=== PATIENT | female | born 1995 | race American Indian/Alaskan Native ===

== ENCOUNTER 2018-09-13 19:18 | Emergency (ER) | payer MEDICAID ==
[2018-09-13 19:48] VITALS: BP 131/71
--- NOTE | 2018-09-13 19:49 | Event Note ---
ED Screening Note Date of service: 09/13/18 Time: 19:46 ED Screening Note: This is a 23 y.o. F. that presents to the ER with chest pain and vaginal discharge. Patient reports vaginal discharge for 1 week. States chest pain is intermittent and sharp in intensity. Current smoker Denies cough, fever LMP 07/27/2018 This initial assessment/diagnostic orders/clinical plan/treatment(s) is/are subject to change based on patients health status, clinical progression and re- assessment by fellow clinical providers in the ED. Further treatment and workup at subsequent clinical providers discretion. Patient/guardian urged not to elope from the ED as their condition may be serious if not clinically assessed and managed. Initial orders include: labs, ekg, and cxr
[2018-09-13 20:45] LABS: HCG Qualitative,Urine Negative (Negative)
[2018-09-13 20:49] LABS: Bacteria,Urine 1+ /HPF (Negative); Bilirubin,Urine NEG (Negative); Blood,Urine NEG (Negative); Color,Urine Yellow (Yellow); Mucus,Urine FEW /HPF; Protein,Urine <15 mg/dL mg/dL (Negative); Urobilinogen,Urine < 2.0 mg/dL (<2.0)
--- NOTE | 2018-09-13 22:00 | XRay Report ---
CHEST 2 VIEWS INDICATION / CLINICAL INFORMATION: Chest pain. COMPARISON: None available. FINDINGS: SUPPORT DEVICES: None. HEART / MEDIASTINUM: No significant abnormality. LUNGS / PLEURA: No significant pulmonary or pleural abnormality. No pneumothorax. ADDITIONAL FINDINGS: No significant additional findings. IMPRESSION: 1. No acute findings. Signer Name: Favian Jackson MD Signed: 09/13/2018 9:55 PM Workstation Name: [id number]
[2018-09-13] MEDS ORDERED: IBUPROFEN PO ONE (23:00)
--- NOTE | 2018-09-13 23:36 | Emergency Department Report ---
ED General Adult HPI - General Chief complaint: Chest Pain Stated complaint: CHEST PAIN/ANXIETY/VAGINAL ITCH Time Seen by Provider: 09/13/18 19:46 Source: patient Mode of arrival: Ambulatory Limitations: No Limitations - History of Present Illness Initial comments: This is a 23 y.o. F. that presents to the ER with chest pain and vaginal discharge. Patient reports vaginal discharge for 1 week white non malodorous, there is no fever or chills no n/v no back pain no hematuria Pt now states that symptoms are related to anxiety and finances no cp no sob no n/v no dizziness no lightheadedness no substance no SI or HI , LMP 07/27/2018 Onset/Timin -: week(s) Severity scale (0 -10): 3 Consistency: intermittent Improves with: none Worsens with: none Associated Symptoms: chest pain. denies: cough, diaphoresis, fever/chills, headaches, loss of appetite, malaise, nausea/vomiting, seizure, shortness of breath, weakness Treatments Prior to Arrival: none - Related Data Previous Rx's Medication Instructions Recorded Last Taken Type Ciprofloxacin HCl [Ciprofloxacin 500 mg PO Q12HR #20 tab 01/20/15 Unknown Rx TAB] Phenazopyridine [Pyridium] 100 mg PO TID #6 tab 01/20/15 Unknown Rx DOXYCYCLINE Hyclate [Vibramycin 100 mg PO BID 10 Days #20 capsule 06/10/18 Unknown Rx CAP] Ibuprofen [Motrin 800 MG tab] 800 mg PO Q8HR PRN #30 tablet 09/13/18 Unknown Rx Nitrofurantoin [place]/M-Cryst 100 mg PO BID 7 Days #14 capsule 09/13/18 Unknown Rx [Macrobid CAP] metroNIDAZOLE [Flagyl] 500 mg PO BID 10 Days #20 tab 09/13/18 Unknown Rx Allergies Allergy/AdvReac Type Severity Reaction Status Date / Time No Known Allergies Allergy Verified 09/13/18 19:22 ED Review of Systems ROS: Stated complaint: CHEST PAIN/ANXIETY/VAGINAL ITCH Other details as noted in HPI Constitutional: denies: chills, fever Eyes: denies: eye pain, eye discharge, vision change ENT: denies: ear pain, throat pain Respiratory: denies: cough, shortness of breath, wheezing Cardiovascular: chest pain (right sided chest wall pain with deep inspiration). denies: palpitations Endocrine: no symptoms reported Gastrointestinal: denies: abdominal pain, nausea, diarrhea Genitourinary: urgency, dysuria, frequency, discharge. denies: hematuria, dyspareunia Musculoskeletal: denies: back pain, joint swelling, arthralgia Skin: denies: rash, lesions Neurological: denies: headache, weakness, paresthesias Psychiatric: denies: anxiety, depression Hematological/Lymphatic: denies: easy bleeding, easy bruising ED Past Medical Hx - Past Medical History Previous Medical History?: Yes Hx Psychiatric Treatment: (bipolar, anxiety) - Surgical History Past Surgical History?: Yes Additional Surgical History: skin graft, arm surgery - Social History Smoking Status: Current Every Day Smoker - Medications Home Medications: Home Medications Medication Instructions Recorded Confirmed Last Taken Type Ciprofloxacin HCl [Ciprofloxacin 500 mg PO Q12HR #20 tab 01/20/15 Unknown Rx TAB] Phenazopyridine [Pyridium] 100 mg PO TID #6 tab 01/20/15 Unknown Rx DOXYCYCLINE Hyclate [Vibramycin 100 mg PO BID 10 Days #20 capsule 06/10/18 Unknown Rx CAP] Ibuprofen [Motrin 800 MG tab] 800 mg PO Q8HR PRN #30 tablet 09/13/18 Unknown Rx Nitrofurantoin [place]/M-Cryst 100 mg PO BID 7 Days #14 capsule 09/13/18 Unknown Rx [Macrobid CAP] metroNIDAZOLE [Flagyl] 500 mg PO BID 10 Days #20 tab 09/13/18 Unknown Rx ED Physical Exam - General Limitations: No Limitations General appearance: alert, in no apparent distress - Head Head exam: Present: atraumatic, normocephalic - Eye Eye exam: Present: normal appearance, PERRL, EOMI Pupils: Present: normal accommodation - ENT ENT exam: Present: mucous membranes moist - Neck Neck exam: Present: normal inspection, full ROM. Absent: tenderness, m eningismus, lymphadenopathy, thyromegaly - Respiratory Respiratory exam: Present: normal lung sounds bilaterally, chest wall tenderness (right lateral chest wall tenderness to palpation). Absent: respiratory distress, wheezes, rales, rhonchi, stridor, accessory muscle use, decreased breath sounds, prolonged expiratory - Cardiovascular Cardiovascular Exam: Present: regular rate, normal rhythm. Absent: systolic murmur, diastolic murmur, rubs, gallop - GI/Abdominal GI/Abdominal exam: Present: soft, normal bowel sounds. Absent: distended, tenderness, guarding, rebound, rigid, bruit, hernia - Rectal Rectal exam: Present: deferred - External exam: Present: other (deferred by patient ) - Extremities Exam Extremities exam: Present: normal inspection, full ROM, normal capillary refill. Absent: tenderness, pedal edema, joint swelling, calf tenderness - Back Exam Back exam: Present: normal inspection, full ROM. Absent: tenderness, CVA tenderness (R), CVA tenderness (L), muscle spasm, paraspinal tenderness, vertebral tenderness, rash noted - Neurological Exam Neurological exam: Present: alert, oriented X3, CN II-XII intact, normal gait, reflexes normal. Absent: motor sensory deficit - Psychiatric Psychiatric exam: Present: normal affect, normal mood - Skin Skin exam: Present: warm, dry, intact, normal color. Absent: rash ED Course Vital Signs 09/13/18 19:46 Temperature 98 F Pulse Rate 88 Respiratory 18 Rate Blood Pressure 131/71 O2 Sat by Pulse 97 Oximetry ED Medical Decision Making - EKG Data EKG shows normal: sinus rhythm, axis, intervals, QRS complexes, ST-T waves Rate: normal - EKG Data When compared to previous EKG there are: other (no previous ekg on record ) Interpretation: normal EKG (EKG interp by ED attending NSR No ST Elevated [place] ) - Radiology Data Radiology results: report reviewed, image reviewed Ordering Physician: ION LUIS Date of Service: 09/13/18 Procedure(s): XR chest routine 2V Accession Number(s): [id number] cc: ION LUIS Fluoro Time In Minutes: CHEST 2 VIEWS INDICATION / CLINICAL INFORMATION: Chest pain. COMPARISON: None available. FINDINGS: SUPPORT DEVICES: None. HEART / MEDIASTINUM: No significant abnormality. LUNGS / PLEURA: No significant pulmonary or pleural abnormality. No pneumothorax. ADDITIONAL FINDINGS: No significant additional findings. IMPRESSION: 1. No acute findings. Signer Name: Favian Jackson MD Signed: 09/13/2018 9:55 PM Workstation Name: [id number] Transcribed By: JANEL Dictated By: Favian Jackson MD Electronically Authenticated By: Favian Jackson MD Signed Date/Time: 09/13/182154 DD/ 54 TD/TT: - Medical Decision Making cxr: normal infiltrates no opacities, ekg: nsr no st elevated mi, ua pos for luek, wbc, plan tx for uti, pt will follow up with pcp in 2-3 days return to ed if symptosm worsen, pt verbalized agreement and understanding of discharge plan. Critical care attestation.: If time is entered above; I have spent that time in minutes in the direct care of this critically ill patient, excluding procedure time. ED Disposition Clinical Impression: Chest wall pain UTI (urinary tract infection) Qualifiers: Urinary tract infection type: acute cystitis Hematuria presence: without hematuria Qualified Code(s): N30.00 - Acute cystitis without hematuria Disposition: TO HOME OR SELFCARE Is pt being admited?: No Does the pt Need Aspirin: No Condition: Stable Instructions: Costochondritis (ED), Urinary Tract Infection in Women (ED) Prescriptions: metroNIDAZOLE [Flagyl] 500 mg PO BID 10 Days #20 tab Nitrofurantoin [place]/M-Cryst [Macrobid CAP] 100 mg PO BID 7 Days #14 capsule Ibuprofen [Motrin 800 MG tab] 800 mg PO Q8HR PRN #30 tablet PRN Reason: Pain , Severe (7-10) Referrals: [facility] [Outside] - 3-5 Days Forms: Work/School Release Form(ED) Time of Disposition: 23:47
== END 2018-09-14 00:16 | disposition home or self-care (01) ==
LOC: ED 19:18
DX: R07.89 Other chest pain (principal); N39.0 Urinary tract infection, site not specified; F31.9 Bipolar disorder, unspecified; F41.9 Anxiety disorder, unspecified; F17.200 Nicotine dependence, unspecified, uncomplicated; Z98.890 Other specified postprocedural states; Z79.899 Other long term (current) drug therapy
CPT/HCPCS: 71046; 81001; 81025; 87086; 93005; 93010; 99284